=== PATIENT | male | born 2000 | race Caucasian/White ===

== ENCOUNTER 2023-02-07 08:30 | Outpatient (CLI) | payer BC ==
[2023-02-07] MEDS ORDERED: Iopamidol 370 76% 100 ML VIAL ONE (09:19)
== END 2023-02-07 08:31 | disposition home or self-care (01) ==
LOC: CSHCT 08:30
PROVIDERS: ATTEND Family Medicine
DX: R51.9 Headache, unspecified (principal); J34.9 Unspecified disorder of nose and nasal sinuses
CPT/HCPCS: 70470; Q9967

== ENCOUNTER 2024-07-24 09:15 | Outpatient (CLI) | payer BC | END 2024-07-24 09:16 | disposition home or self-care (01) | LOC: CSHULT 09:15 | PROVIDERS: ATTEND Family Medicine | DX: R79.89 Other specified abnormal findings of blood chemistry (principal); K76.0 Fatty (change of) liver, not elsewhere classified | CPT/HCPCS: 76700 ==